=== PATIENT | male | born 1995 | race Caucasian/White ===

== ENCOUNTER 2025-05-14 16:08 | Inpatient (IN) | payer OTHER, SELFPAY ==
[2025-05-14] VITALS (8 sets, daily range): BP systolic 126–158; BP diastolic 63–90; BMI 29.3; BMI 33.8
--- NOTE | 2025-05-14 13:53 | ED.GENMED ---
History of Present Illness
General
Chief Complaint: Abdominal Pain
Source: patient and family
Exam Limitations: none
Time Seen by Provider: 05/14/25 13:47
Nursing documentation reviewed up to this point in time: agreed with
History of Present Illness
History of Present Illness:
Patient presents to ED secondary to worsening left-sided abdominal pain, noted around 10 AM, when he first woke up. Abdominal pain described as sharp, nonradiating, without any alleviating or exacerbating factors. Denies back pain. Denies nausea
or vomiting. Denies diarrhea. Denies trauma. Patient denies any symptoms when he first went to sleep last night. Per family the, patient was complaining of left-sided abdominal pain couple days ago which had resolved spontaneously. There is
family history of kidney stones. Patient does not smoke, but does drink alcohol socially, but at different times heavily.
Review of Systems
Review of Systems
Allergies reviewed?: Yes
All Other Systems: ROS reviewed and negative except as documented in HPI and ROS
Constitutional: Reports no symptoms
Respiratory: Reports no symptoms
Cardiac: Reports no symptoms
ABD/GI: Reports abdominal pain and nausea; Denies vomiting or diarrhea
: Reports no symptoms
Musculoskeletal: Reports no symptoms
Skin: Reports no symptoms
Neurological: Reports no symptoms
Phy Exam
Physical Exam
Physical Exam:
Physical Exam
General: moderate painful distress, not acutely ill. afebrile
Head: nc/at. eomi
Neck: supple. normal range of motion.
Heart: s1/s2 regular rate and rhythm
Lungs: no acute respiratory distress. clear bilaterally
Abdomen: normal bowel sounds. moderate epigastric/LUQ tenderness to palpation
Neuro: alert and oriented x 3. no focal neurological deficits
Skin: no rash
Psychiatric: well kept. interactive and cooperative
Extremities: no edema. no calf tenderness.
Course
Orders/Labs/Results
Orders:
Orders
05/14/25 13:56
Alcohol Urgent
Complete Blood Count/With Diff Urgent
Comprehensive Metabolic Panel Urgent
Lipase Urgent
Triglycerides Urgent
Comment: ADD ON
05/14/25 13:59
Urinalysis Reflex To Culture Urgent
Date Specimen was Collected: 05/14/25
Time Specimen was Collected: 13:57
Urine Microscopic Reflex Cult Urgent
05/14/25 14:04
HYDROmorphone [Dilaudid] 0.5 mg IV NOW STA
Ketorolac [Toradol] 15 mg IV NOW STA
05/14/25 14:05
Pantoprazole [Protonix IV] 40 mg IV NOW STA
05/14/25 14:06
0.9% Sodium Chloride [Nss (Preservative Free)] 10 ml IV NOW STA
05/14/25 14:15
0.9% Sodium Chloride 1000 ml [Nss] 1,000 ml IV BOLUS
05/14/25 15:25
Add On- LAB Urgent
Tests Added?: alcohol level
US Abdomen Complete/Upper Urgent
Comment:
Reason For Exam: abd pain
05/14/25 15:30
Lactated Ringers [Lr] 500 ml IV 125 mls/hr
05/14/25 15:46
Admit/Transfer Patient As Directed
Co-Sign Provider:
Level of Care: Inpatient admission
Assign to:: Medical/Surgical
Physician / Group: triny
Diagnosis: acute pancreatitis
Reason for Hospitalization: acute pancreatitis
Expected length of stay greater than two midnights?: Yes
ELOS- Estimated Length of Stay in days: 3
I certify the patient meets the requirements for IP care: Yes
05/14/25 15:47
Code Status As Directed
Resuscitation Status: Full Code
PRN Pain Medication Management As Directed
May give lesser potent ordered pain med per pt: Yes
preference::
Protocol:: Medication orders for pain may be administered in a
manner that supports deferring to patient preference
when the pt is:
- Requesting an ordered lesser potent pain medication.
Least to most potent pain medications are defined
as: acetaminophen < NSAID < tramadol < opioids
(morphine, oxycodone, hydromorphone).
- Requesting a lesser dose of the same medication IF
ORDERED.
- Requesting a less intrusive route of administration
if both routes are prescribed by the provider (PO <
IV).
05/14/25 16:00
Lactated Ringers [Lr] 1,000 ml IV 150 mls/hr
05/14/25 17:47
HYDROmorphone [Dilaudid] 1 mg IV Q4HPRN PRN
05/14/25 20:47
0.9% Sodium Chloride [Nss (Preservative Free)] See Protocol IV PRN PRN
Enoxaparin Sodium [Lovenox] 40 mg SC QPM
FOLic ACID [Folvite] 1 mg 0.9% Sodium Chloride 50 ml [Nss] 50 ml IV DAILYPRN
Lorazepam [Ativan] 1 mg PO Q2HPRN PRN
Lorazepam [Ativan] 2 mg IV Q1HPRN PRN
Thiamine Injection 200 mg IV Q12
05/14/25 20:47
Case Management Consult Once
Case Management Consult: Other
Comment: Substance abuse counseling
DIETARY IP CONSULT Routine
Reason for Consult: Nutrition support, possible refeeding guidelines
PTT Urgent
Prothrombin Time Urgent
Activity As Directed
Activity Level: As Tolerated
MSAS SCORE As Directed
MSAS Score 0-4: Repeat MSAS every 2 hours until 0-4 for three consecutive assessments, then every 4 hours x 48
hours.
MSAS Score 5-7: For MILD withdrawl symptoms. Repeat MSAS and RASS every 2 hours
MSAS Score 8-11: For MODERATE withdrawal symptoms. Repeat MSAS and RASS every 1 hour. Consider ICU or IMU
level of care.
MSAS Score > 11: For SEVERE withdrawal symptoms. Repeat MSAS and RASS every 1 hour. Notify provider, consider
ICU level of care.
MSAS Additional Instructions: If no improvement or no decrease in score from severe to moderate within 12
hours, consult psychiatry
MSAS Notify Provider: Notify provider if patient requires more than 10 mg of Lorazepam in eight hour period.
Vital Signs As Directed
Frequency: Per unit guidelines
DX Deep Vein Thrombosis Video Routine
05/14/25 21:07
Lorazepam [Ativan] 1 mg PO Q1HPRN PRN
05/15/25 08:00
FOLic ACID [Folvite] 1 mg PO DAILY
Pantoprazole [Protonix IV] 40 mg IV DAILY
05/17/25 20:00
Thiamine HCl [Vitamin B1] 100 mg PO BID
Abnormal Lab Results
05/14/25 05/14/25
13:56 13:59
WBC 11.6 H 10^3/uL
(4.8-10.8)
MCHC 32.9 L g/dL
(33.0-37.0)
MPV 11.4 H fL
(7.4-10.4)
Absolute Neuts (auto) 7.7 H 10^3/uL
(1.4-6.5)
Glucose 167 H mg/dl
(70-99)
ALT 89 H U/L
(0-50)
Total Protein 8.3 H g/dl
(6.3-8.2)
Triglycerides 388 H mg/dl
(10-149)
Lipase > 4000 H* U/L
(23-300)
Urine Albumin (Reflex) 1+ A
(Neg - Trace)
05/14/25 13:56
05/14/25 13:56
Vital Signs
Initial and Last Documented VS:
Initial Vital Signs
Temp Pulse Resp BP Pulse Ox
98.2 F 88 16 150/90 100
05/14/25 13:23 05/14/25 13:23 05/14/25 13:23 05/14/25 13:23 05/14/25 13:23
Last Documented Vital Signs
Temp Pulse Resp BP Pulse Ox
99.0 F 70 18 134/41 95
05/15/25 15:38 05/15/25 15:38 05/15/25 15:38 05/15/25 15:38 05/15/25 15:38
MDM/Problems Addressed
MDM/Problems Addressed:
History and exam concerning for an acute pancreatitis. Abdominal ultrasound ordered. Patient denies drinking alcohol last night. Patient had chicken soup for dinner. Patient will be admitted for further evaluation and treatment.
Lactated Ringer IVF started.
*Pulse Oximetry
SaO2: 100
Oxygen Mode of Delivery: Room air
Patient hypoxic: no
*Critical Care Note
Total Time (30-74mins, 75-104mins- exclusive of procedures): Not Applicable
ED Attending Note
-
Portions of this chart may have been created with voice recognition software.� Occasional wrong word or��sound alike� substitutions may have occurred due to the inherent limitations of voice recognition software.
Discharge Plan
Departure
Patient Disposition: Admit
Date of Disposition: 05/14/25
Time of Disposition: 15:31
Admit to: Med/Surg
Presentation/result/management discussed w/ accepting MD/DO: Hospitalist
Discharge Problem:
Pancreatitis
Interventions
Interventions:
*Risk Screen - Suicide Last Done: 05/14/25 13:23
*General Assessment Last Done: 05/14/25 13:53
*Neglect/Abuse Screening Last Done: 05/14/25 13:23
*ED- Fall Risk Assessment Last Done: 05/14/25 13:53
*ED COVID-19 Vaccine History Last Done: 05/14/25 13:53
*Nursing Disposition Last Done: 05/14/25 20:47
LF-Ylprck-Kdnnwtwlhc Assessment Last Done: 05/14/25 13:53
Discharge Date and Time
Discharge Date/Time: 05/14/25 20:47
[2025-05-14] MEDS: NSS 1000 IV (14:06)
[2025-05-14] MEDS: DILAUDID 0.5 MG IV ×3 (14:07→21:16)
[2025-05-14] MEDS: TORADOL 15 MG IV (14:07)
[2025-05-14] MEDS: NSS (PRESERVATIVE FREE) 10 ML IV (14:10)
[2025-05-14] MEDS: PROTONIX IV 40 MG IV (14:10)
[2025-05-14 14:11] LABS: Urine Character Clear (Clear)
[2025-05-14 14:11] LABS: Hematocrit 42.2 % (39.0-52.0); Hemoglobin 13.9 g/dL (13.0-18.0); Mean Corp Hgb Conc. 32.9 g/dL (33.0-37.0); Mean Corpuscular Volume 87.7 fL (80.0-94.0); Nucleated Red Blood Cells % 0 % (-); Platelet Count 233 10^3/uL (130-400); Red Cell Dist. Width 12.9 % (11.5-14.5)
[2025-05-14 14:34] LABS: ALT (SGPT) 89 U/L (0-50); AST (SGOT) 48 U/L (17-59); Albumin 5.0 g/dl (3.5-5.0); Alkaline Phosphatase 73 U/L (38-126); Blood Urea Nitrogen 14 mg/dl (9-20); Calcium 10.0 mg/dl (8.4-10.2); Carbon Dioxide 24 mmol/L (22-30); Chloride 105 mmol/L (98-107); Estimated Creatinine Clearance 118 ml/min; Glucose 167 mg/dl (70-99); Potassium 4.3 mmol/L (3.5-5.1); Sodium 141 mmol/L (135-145); Total Protein 8.3 g/dl (6.3-8.2); eGFR > 60.00
[2025-05-14 14:43] LABS: Urine Squamous Cell 0-2 /LPF (Few)
[2025-05-14 14:44] LABS: Urine Red Blood Cell 0-2 /HPF (0-2); Urine White Cell 0-2 /HPF (0-5)
[2025-05-14 15:02] LABS: Lipase > 4000 U/L (23-300)
--- NOTE | 2025-05-14 15:32 | HPS.HSE ---
Family Physician
-
Family Physician: * NONE
Chief Complaint
-
left sided abdominal pain
History of Present Illness
29 year old with no significant PMH presented to us with left-sided abdominal pain, noted around 10 AM, when he first woke up. he noticed some left sided back pain yesterday. Abdominal pain described as sharp, nonradiating, without any
alleviating or exacerbating factors. Denies nausea or vomiting. Denies diarrhea. Denies trauma. denied fever, chills, SANDS,dizzy or syncope.denied chest pain, sob.denied dysuria or hematuria. he drinks once a week and drinks 8-[address] with pancreatitis. admitting for further management.
Medical History
Past Medical History
Past Medical History: Reports None
Past Surgical History: Reports None
Social History
Tobacco: Non-smoker
Alcohol: Occasional
Drug: None
Living: With Family
Family History
Family History: Not pertinent
Allergies / Home Medications
Allergies reflects when Allergies were last updated in [facility].
Home Medications with original date entered in [facility]
Allergy/Medication List:
Allergies
Allergy/AdvReac Type Severity Reaction Status Date / Time
No Known Allergies Allergy Verified 05/14/25 13:55
Home Medications
No Meds [No Current Medications] 05/14/25
Review of Systems
-
Constitutional: Reports No Symptoms
EENT: Reports No Symptoms
Respiratory: Reports No Symptoms
Cardiac: Reports No Symptoms
Abdomen/GI: Reports No Symptoms and Abdominal Pain
: Reports No Symptoms
Musculoskeletal: Reports No Symptoms
Skin: Reports No Symptoms
Neurological: Reports No Symptoms
Endocrine: Reports No Symptoms
Hematologic/Lymphatic: Reports No Symptoms
Psych: Reports No Symptoms
Physical Exam
Vital Signs
Vital Signs
Temp Pulse Resp BP Pulse Ox
98.2 F 88 16 142/67 100
05/14/25 13:23 05/14/25 13:23 05/14/25 13:23 05/14/25 15:00 05/14/25 15:15
Physical Exam
General: Well Developed, Well Nourished and No Apparent Distress
HEENT: NormoCephalic, Moist mucous membranes and Atraumatic
Respiratory: Clear
Cardiac: S1/S2 and Regular Rhythm; No Murmur or Rub
GI: Soft, Non Distended, Normal Bowel Sounds and Tender; No Organomegaly
Rectal: Deferred by Provider
Musculoskeletal: No Clubbing, No Cyanosis and No Edema
Skin: No Rash
Neuro: AO x 3 and Nonfocal/grossly intact
Psych: Calm
Laboratory Results
-
05/14/25 13:56
05/14/25 13:56
Laboratory Results
Total Bilirubin 0.8 mg/dl (0.2-1.3) 05/14/25 13:56
AST 48 U/L (17-59) 05/14/25 13:56
ALT 89 U/L (0-50) H 05/14/25 13:56
Alkaline Phosphatase 73 U/L (38-126) 05/14/25 13:56
Lipase > 4000 U/L (23-300) H* 05/14/25 13:56
Data Reviewed
-
CT Scan: Report Reviewed by me
Lab Data: Labs Reviewed by me
Impression/Plan
-
# Acute pancreatitis
-WBCs 11.6 ALT 89, lipase greater than 4000
-Ultrasound of abdomen pending
-Fluids continued
-keep patient NPO
Dilaudid as needed for pain
#alcohol dependence
-no withdrawal noted
-drinks 8-10 beers once a week, last drink was on Wednesday
-monitor MSAS score and protocol.
#DVT prophylaxis
-Lovenox
#CODE status
-full code
--- NOTE | 2025-05-14 15:47 | W.PN.UPDATE ---
Update Note
Progress Note Update
This note serves as an addendum to the H&P by Amy Fortune on May 14, 2025.
History of Presenting Illness
29 year old male with no significant past medical history presented with progressively worse left-sided abdominal pain, noted around 10 AM on May 14, 2025, when he first woke up. He had noticed some left sided back pain the day before. He
described his abdominal pain as sharp, nonradiating, and without any alleviating or exacerbating factors. He denied nausea or vomiting, diarrhea, trauma, fever, chills, headache, dizziness, syncope, chest pain, shortness of breath, dysuria or
hematuria. He drinks once a week and drinks 8-10 beers when he does.
Vital Signs
AFVSS
Physical Exam
General: Not in acute distress
HEENT: Normocephalic, Moist mucous membranes and Atraumatic
Respiratory: Clear to Auscultation Bilaterally
Cardiac: S1/S2 and Regular Rhythm
GI: Soft, Non Distended, Normal Bowel Sounds and Tender
Musculoskeletal: No Cyanosis and No Edema
Skin: Warm. Dry.
Neuro: AAO x 3 and Nonfocal/grossly intact
Psych: Calm
Assessment/Plan
#Mild Acute pancreatitis
-WBCs 11.6 ALT 89, lipase greater than 4000
-Ultrasound of abdomen
-Check serum triglyceride levels
-Lactated Ringers IV fluids at 200 cc/hr
-NPO for now -- will transition to Low Residue, Low Fat and Soft diet when patient is hungry and does not have nausea, vomiting, or paralytic ileus.
-NSAIDs or Dilaudid as needed for pain
#Alcohol Dependence
-no withdrawal noted
-drinks 8-10 beers once a week, last drink was on Wednesday05/12/25
-MSAS protocol
DVT Prophylaxis: SCDs and Lovenox
Code Status: Full Code
[2025-05-14] MEDS: LR 1000 IV ×2 (15:52→23:12)
--- NOTE | 2025-05-14 21:00 | PTCARENOTE ---
Patient arrived to unit via stretcher accompanied by ED PCT. Patient ambulated self into room/bed without difficulty. Patient primarily greek speaking, mill operator used for assessment and admission. MSAS score of 3. Patient medicated for 8/10 pain
in L abd, see MAR. Patient vomited clear contents and admits to feeling better after. Oriented to room/facility, instructed use of call garcia and within reach, safe environment maintained, VSS, care ongoing.
[2025-05-14 21:02] LABS: Triglycerides 388 mg/dl (10-149)
[2025-05-14] MEDS: THIAMINE INJECTION 200 MG IV (21:20)
[2025-05-14] MEDS: LR IV (21:20)
[2025-05-14] MEDS: LOVENOX 40 MG SC (21:20)
[2025-05-15] MEDS: DILAUDID 0.5 MG IV ×3 (01:25→10:21)
[2025-05-15] MEDS: ZOFRAN 4 MG IV ×3 (01:44→20:11)
[2025-05-15 03:37] VITALS: BP 131/69
[2025-05-15] MEDS: LR 1000 IV ×3 (06:02→19:33)
[2025-05-15 07:30] VITALS: BP 140/71
[2025-05-15 07:56] LABS: Hematocrit 37.2 % (39.0-52.0); Hemoglobin 12.2 g/dL (13.0-18.0); INR 1.08; Mean Corp Hgb Conc. 32.8 g/dL (33.0-37.0); Mean Corpuscular Volume 87.5 fL (80.0-94.0); PT 14.3 Sec (11.4-14.6); Platelet Count 189 10^3/uL (130-400); Red Cell Dist. Width 13.3 % (11.5-14.5)
[2025-05-15 07:58] LABS: APTT 26.2 Sec (23.4-35.0)
[2025-05-15 08:42] LABS: ALT (SGPT) 57 U/L (0-50); AST (SGOT) 34 U/L (17-59); Albumin 3.9 g/dl (3.5-5.0); Alkaline Phosphatase 42 U/L (38-126); Blood Urea Nitrogen 17 mg/dl (9-20); Calcium 9.1 mg/dl (8.4-10.2); Carbon Dioxide 26 mmol/L (22-30); Chloride 103 mmol/L (98-107); Estimated Creatinine Clearance > 125 ml/min; Glucose 116 mg/dl (70-99); Magnesium 1.4 mg/dl (1.6-2.3); Potassium 3.9 mmol/L (3.5-5.1); Sodium 138 mmol/L (135-145); Total Protein 6.5 g/dl (6.3-8.2); eGFR > 60.00
[2025-05-15] MEDS: THIAMINE INJECTION 200 MG IV ×2 (08:55→19:33)
[2025-05-15] MEDS: PROTONIX IV 40 MG IV (08:56)
[2025-05-15] MEDS: NSS (PRESERVATIVE FREE) 10 ML IV (08:56)
[2025-05-15] MEDS: FOLVITE 1 MG PO (08:58)
--- NOTE | 2025-05-15 10:22 | CON.GI ---
Addendum entered and electronically signed by Pauline Bansal MD 05/15/25 13:08:
I saw and examined the patient.
The PATIENT TRANSPORT OFFICER or PA's note was reviewed and I agree with the note.
Comment: 29-year-old Bulgarian-speaking male (history obtained from patient through his brother as park maintainer on the telephone) presenting to the emergency room with complaints of mid abdominal pain radiating to the back, initially started Wednesday but
progressively got worse yesterday. He does report intermittent episodes of epigastric pain after meals in the last 1 year with some loose stool and bloating. Pain his presenting with now is different from the epigastric pain he had before. In the
ER, he was noted to have lipase more than 4000 with ALT about 2 times upper limit of normal. Abdominal ultrasound showing biliary sludge without acute cholecystitis, common duct mildly dilated 7 mm, fatty liver noted. No leukocytosis.
Non-smoker, would drink up to 10 beers a week. Last alcohol use was 2 days prior to admission. No other GI complaints or family history of known GI problems.
- Acute pancreatitis, rule out gallstone related versus EtOH
Currently on Ringer lactate at 150 cc an hour
N.p.o., once abdominal pain is getting better, can start with clear liquid diet and slowly advance to low-fat diet as tolerated.
Will check MRI/MRCP to evaluate for any evidence of choledocholithiasis. If there is any evidence of gallstones, recommend surgical consult.(By history, he could be having biliary colic as well.)
Agree with checking triglyceride level.
Reinforced complete abstinence from alcohol.
Will follow
Original Note:
Consultation
-
Date/Time Consultation Requested: 05/14/252046
Date/Time Consultation Performed: 05/15/25 1000
Requesting Provider: KUNAL Mckinney
Performing Provider: Dr. Bansal/KUNAL Avina
Reason for Consultation: pancreatitis
Medical History
Chief Complaint / HPI
Chief Complaint: abd pain
History of Present Illness:
29-year-old male (Bulgarian-speaking) who we interviewed with the assistance of his brother (Barbara) per patient preference with no significant past medical history, no past surgical history who presents to the emergency room with 3-day history of
abdominal pain. Asked to evaluate for pancreatitis. The patient does not take any medications, prescription, [id number] or vitamins. He does not smoke either tobacco, vape or marijuana. He has essentially 8-10 beers once a week and only,
(last alcoholic beverage was Wednesday). He has had intermittent abdominal discomfort over the past year that has been associated with 'greasy foods'. This pain however has been different. On Wednesday he started having some mid abdominal discomfort
that started to radiate to the right side of his abdomen. This initially was mild. Yesterday a.m. around 12 PM he had a '10 out of 10 pain'. He has never had pain like this in the past. It radiated through to his back. At that point they came
to the emergency room for further evaluation. He did have associated nausea and vomiting that was 'white'. He usually has 3 bowel movements a day that starts out 'normal and then has loose stool' he denies any melena or hematochezia. He denies
any fevers, chills, acholic stools, bilirubinuria, dysphagia or odynophagia. He has had some early satiety as well as some bloating. He denies any chest pain, shortness of breath, dizziness or lightheadedness. At the present time he rates his
pain as a '4 or 5'. Past family history includes mother with diabetes and a sister with 'stomach problems'. Denies any family history of pancreatic issues, liver disease or GI malignancy. 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 At the present time he is on
lactated Ringer's at 150 cc an hour. He was given 2 L of IV fluid prior to this. WBC 9.4 down from 11.6, hemoglobin 12.2 down from 13.9 showing appropriate hemodilution, hematocrit 37.2, platelets 189, MCV 87.5, MCH 28.7, PT 14.3 INR 1.08, sodium
138, potassium 3.9, chloride 103, CO2 26, BUN 17 creatinine 0.7, glucose 116, magnesium 1.4, total bilirubin 1.2, AST 34, ALT 57 (down from 89), alk phos 42, triglycerides 388, lipase greater than 4000, alcohol negative. Ultrasound the abdomen
showing biliary sludge. No biliary ductal dilatation however CBD measures 7 mm.
Past Medical History
Past Medical History: None
Past Surgical History: None
Social History
Tobacco: Non-Smoker
Alcohol: Binge Drinker (Drinks 8-10 beers on weekend)
Drug: None
Personal: Single
Employment: Employed
Family History
Family History: Other (No family history of GI malignancy, sister with 'stomach problems'.)
Allergies / Home Medications
Allergy/AdvReac Type Severity Reaction Status Date / Time
No Known Allergies Allergy Verified 05/14/25 13:55
�Medication �Instructions �Recorded
No Meds [No Current Medications] 05/14/25
Review of Systems
-
All other systems: A 12 pt ROS was Negative except as stated above in HPI
Vital Signs
Temp Pulse Resp BP Pulse Ox
98.7 F 85 18 140/71 95
05/15/25 07:30 05/15/25 07:30 05/15/25 07:30 05/15/25 07:30 05/15/25 07:30
Physical Exam
Exam
General: No Apparent Distress
HEENT: Anicteric and Moist Mucous Membranes
Respiratory: Clear (Decreased right base)
Cardiac: Regular Rhythm
GI: Soft, Non Distended, Normal Bowel Sounds and Tender (Periumbilical/left upper quadrant)
Musculoskeletal: No Edema
Skin: Warm and Dry
Neuro: AO x 3
Psych: Calm
Results
WBC 9.4 10^3/uL (4.8-10.8) 05/15/25 06:51
Hgb 12.2 g/dL (13.0-18.0) L 05/15/25 06:51
Hct 37.2 % (39.0-52.0) L 05/15/25 06:51
MCV 87.5 fL (80.0-94.0) 05/15/25 06:51
Plt Count 189 10^3/uL (130-400) 05/15/25 06:51
Absolute Neuts (auto) 7.7 10^3/uL (1.4-6.5) H 05/14/25 13:56
PT 14.3 Sec (11.4-14.6) 05/15/25 06:51
INR 1.08 05/15/25 06:51
APTT 26.2 Sec (23.4-35.0) 05/15/25 06:51
Sodium 138 mmol/L (135-145) 05/15/25 06:51
Potassium 3.9 mmol/L (3.5-5.1) 05/15/25 06:51
Chloride 103 mmol/L (98-107) 05/15/25 06:51
Carbon Dioxide 26 mmol/L (22-30) 05/15/25 06:51
BUN 17 mg/dl (9-20) 05/15/25 06:51
Creatinine 0.7 mg/dL (0.7-1.3) 05/15/25 06:51
Calcium 9.1 mg/dl (8.4-10.2) 05/15/25 06:51
Total Bilirubin 1.2 mg/dl (0.2-1.3) 05/15/25 06:51
AST 34 U/L (17-59) 05/15/25 06:51
ALT 57 U/L (0-50) H 05/15/25 06:51
Alkaline Phosphatase 42 U/L (38-126) 05/15/25 06:51
Lipase > 4000 U/L (23-300) H* 05/14/25 13:56
Diagnostic Image Results:
Ultrasound abdomen:
IMPRESSION:
Biliary sludge without sonographic findings suggestive of acute cholecystitis.
The common bile duct is mildly dilated measuring 7 mm. Recommend correlation with lab value and possible MRCP for evaluation of biliary obstruction.
Mild hepatomegaly with hepatic steatosis.
Prior GI Procedures:
EGD: Never
Colonoscopy: Never
Assessment / Plan
-
29-year-old male (Bulgarian-speaking) who we interviewed with the assistance of his brother (Barbara) per patient preference with no significant past medical history, no past surgical history who presents to the emergency room with 3-day history of
abdominal pain. Asked to evaluate for pancreatitis. The patient does have intermittent abdominal discomfort associated with 'greasy food'. Ultrasound of the abdomen with common bile duct mildly dilated measuring 7 mm as well as biliary sludge
seen. Lipase greater than 4000. Also with history of once weekly binge like drinking 8-10 beers at a time. Triglycerides elevated at 388.
Impression:
Pancreatitis
Plan:
- Continue lactated Ringer's at 150 cc an hour
- N.p.o. until after MRI of the abdomen with and without contrast with MRCP, if negative for common bile duct stone will likely trial clear liquid.
- CBC, CMP, total bilirubin in a.m.
- Incentive spirometer
- Analgesia
- Recommend avoidance of alcohol
-Further recommendations to be forthcoming
-
-
Thank you for consultation and allowing me to participate in the patient's care. Please call the vendor management consultant GI physician during the after hours with any questions or concerns.
[2025-05-15 11:15] VITALS: BP 136/73
--- NOTE | 2025-05-15 15:05 | CM ---
Met with patient to obtain information for assessment using property developer. Patient stated that he lives with his two brothers in a multi-story house with 5 steps to enter. He described himself as independent with all of his ADLs, personal care,
dressing and bathing. 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 He drives and can get himself to all of his appointments and does his own shopping. He has no DME. He has never had VN or been to a SNF.
Patient was offered substance abuse counseling resources from [facility] however he declined. Patient is self pay. Will confirm that he started the [facility] process.
Patient has a prescription plan and uses, [facility] [address] in [place].
Patient's PCP is not listed in chart.
Plan: Case management will continue to follow and assist with discharge planning. Home when stable medically.
[2025-05-15 15:38] VITALS: BP 134/41
[2025-05-15] MEDS: LOVENOX 40 MG SC (17:17)
--- NOTE | 2025-05-15 17:22 | W.PN.HOSP.TC ---
Today's Communication/Plan
-
See plan
Assessment / Plan
Assessment / Plan
Physical Exam
General: Not in acute distress
HEENT: Normocephalic, Moist mucous membranes and Atraumatic
Respiratory: Clear to Auscultation Bilaterally
Cardiac: S1/S2 and Regular Rhythm
GI: Soft, Non Distended, Normal Bowel Sounds and Tender
Musculoskeletal: No Cyanosis and No Edema
Skin: Warm. Dry.
Neuro: AAO x 3 and Nonfocal/grossly intact
Psych: Calm
Assessment/Plan
Mild Acute pancreatitis
-WBCs 11.6 ALT 89, lipase greater than 4000
-Ultrasound of abdomen abnormal --> check MRI/MRCP to evaluate for any evidence of choledocholithiasis
-Serum triglyceride 388
-Lactated Ringers IV fluids at 150 cc/hr
-NPO for now -- can transition to Low Residue, Low Fat and Soft diet when patient is hungry and does not have nausea, vomiting, or paralytic ileus.
-NSAIDs or Dilaudid as needed for pain
Alcohol Dependence
-no withdrawal noted
-drinks 8-10 beers once a week, last drink was on Wednesday05/12/25
-MSAS protocol
DVT Prophylaxis: SCDs and Lovenox
Code Status: Full Code
Anticipated Discharge: 24 - 48 hours
Subjective/Interval History
-
Date of Service: May 15, 2025
Patient was seen and examined. He reported still having abdominal pain.
Objective Data
-
Labs:
Laboratory Results
05/15/25
06:51
WBC 9.4
Hgb 12.2 L
Hct 37.2 L
Plt Count 189
PT 14.3
INR 1.08
APTT 26.2
Sodium 138
Potassium 3.9
Chloride 103
Carbon Dioxide 26
BUN 17
Creatinine 0.7
Glucose 116 H
Calcium 9.1
Total Bilirubin 1.2
AST 34
ALT 57 H
Alkaline Phosphatase 42
Vital Signs:
Vital Signs
Temp Pulse Resp BP Pulse Ox
99.0 F 70 18 134/41 95
05/15/25 15:38 05/15/25 15:38 05/15/25 15:38 05/15/25 15:38 05/15/25 15:38
[2025-05-15] MEDS: MAGNESIUM SULFATE 102 GRAMS IV (17:43)
[2025-05-15 19:14] VITALS: BP 138/82
[2025-05-15] MEDS: TYLENOL 650 MG PO (19:34)
[2025-05-15 23:20] VITALS: BP 126/70
[2025-05-16 03:22] VITALS: BP 142/85
[2025-05-16] MEDS: TYLENOL 650 MG PO ×2 (03:29→09:58)
[2025-05-16] MEDS: LR 1000 IV ×2 (03:29→09:59)
[2025-05-16 07:12] LABS: Hematocrit 34.5 % (39.0-52.0); Hemoglobin 11.7 g/dL (13.0-18.0); Mean Corp Hgb Conc. 33.9 g/dL (33.0-37.0); Mean Corpuscular Volume 86.0 fL (80.0-94.0); Nucleated Red Blood Cells % 0 % (-); Platelet Count 159 10^3/uL (130-400); Red Cell Dist. Width 13.2 % (11.5-14.5)
[2025-05-16 07:30] VITALS: BP 127/74
[2025-05-16 08:17] LABS: ALT (SGPT) 46 U/L (0-50); AST (SGOT) 28 U/L (17-59); Albumin 3.8 g/dl (3.5-5.0); Alkaline Phosphatase 43 U/L (38-126); Blood Urea Nitrogen 9 mg/dl (9-20); Calcium 8.9 mg/dl (8.4-10.2); Carbon Dioxide 29 mmol/L (22-30); Chloride 100 mmol/L (98-107); Estimated Creatinine Clearance > 125 ml/min; Glucose 110 mg/dl (70-99); Magnesium 1.9 mg/dl (1.6-2.3); Potassium 3.5 mmol/L (3.5-5.1); Sodium 136 mmol/L (135-145); Total Protein 6.3 g/dl (6.3-8.2); Triglycerides 160 mg/dl (10-149); eGFR > 60.00
[2025-05-16] MEDS: FOLVITE 1 MG PO (09:55)
[2025-05-16] MEDS: NSS (PRESERVATIVE FREE) 10 ML IV (09:55)
[2025-05-16] MEDS: THIAMINE INJECTION 200 MG IV (09:55)
[2025-05-16] MEDS: PROTONIX IV 40 MG IV (09:55)
--- NOTE | 2025-05-16 10:48 | W.PN.GI.CBS2 ---
Addendum entered and electronically signed by Pauline Bansal MD 05/16/25 17:03:
I saw and examined the patient.
The WELFARE DIRECTOR or PA's note was reviewed and I agree with the note.
Comment: Communicated with patient through e commerce merchant video call.
Patient denies any abdominal pain, nausea or vomiting. No fevers or chills. Reports having a bowel movement which is formed this morning. Tolerating low residue diet
LFTs including transaminases and alkaline phosphatase in normal range, elevated indirect bilirubin.
MRI with on hold as symptoms completely improved
Patient wants to go home and follow-up as outpatient
I did explain to patient through trial attorney that his postprandial abdominal pain could be related to biliary colic, I did give number for general surgery to follow-up with them for ongoing symptoms.
Complete abstinence from alcohol reinforced.
If symptoms recur, suggested coming back to the emergency room. Patient understands.
Original Note:
Today's Communication / Plan
-
As per plan
Assessment / Plan
-
29-year-old male (Occitan-speaking) who we interviewed with the assistance of his brother (Barbara) per patient preference with no significant past medical history, no past surgical history who presents to the emergency room with 3-day history of
abdominal pain. Asked to evaluate for pancreatitis. The patient does have intermittent abdominal discomfort associated with 'greasy food'. Ultrasound of the abdomen with common bile duct mildly dilated measuring 7 mm as well as biliary sludge
seen. Lipase greater than 4000. Also with history of once weekly binge like drinking 8-10 beers at a time. Triglycerides elevated at 388, now decreased to 160. No leukocytosis, LFTs currently total bilirubin 1.5, direct bilirubin 0.3, AST 28,
ALT 46, alk phos 43. Patient was hungry yesterday and started low-fat diet yesterday afternoon. Has been tolerating diet without any increase in pain. Has only required Tylenol in the past 24 hours. Has had a mild fever. COVID test pending.
Impression:
Pancreatitis
Plan:
- Can reduce IV fluids and discontinue as patient tolerating solid diet without any difficulty, and is pain-free.
- MRI has been discontinued as patient is tolerating solid diet.
- There is dilatation of the common bile duct with normal LFTs. Cannot exclude biliary sludge or passed stone although not seen on imaging. Patient has had biliary type complaints in the past.
- Recommend avoidance of alcohol.
- Patient does want a go home today.
- Recommend low-fat diet.
- Patient still with low-grade fever. Discussed with medicine attending. COVID pending.
- If with any continued symptoms worsening pain would need MRI of the abdomen with and without contrast and MRCP.
Subjective
Subjective
Date of Service: May 16, 2025
Patient seen and currently finished breakfast this morning. Also had a solid dinner last night. Patient states that he has no abdominal pain. He states pain resolved yesterday. At that point he was placed on a low-fat diet. He has had a mild
temperature since yesterday. Patient states that he wants to go home. He has only required Tylenol for discomfort in the past 24 hours. Continues on lactated Ringer's at 150 cc an hour. No leukocytosis. No antibiotics. Total bilirubin 1.5,
direct bilirubin 0.3, AST 28, ALT 46, alk phos 43, triglycerides 160. MRI/MRCP not performed.
Objective
Data Reviewed
Laboratory Data:
Laboratory Results
05/16/25 06:54
05/16/25 06:54
Laboratory Results
PT 14.3 Sec (11.4-14.6) 05/15/25 06:51
INR 1.08 05/15/25 06:51
APTT 26.2 Sec (23.4-35.0) 05/15/25 06:51
Phosphorus Cancelled 05/14/25 20:47
Magnesium 1.9 mg/dl (1.6-2.3) 05/16/25 06:54
Total Bilirubin 1.5 mg/dl (0.2-1.3) H 05/16/25 06:54
AST 28 U/L (17-59) 05/16/25 06:54
ALT 46 U/L (0-50) 05/16/25 06:54
Alkaline Phosphatase 43 U/L (38-126) 05/16/25 06:54
Lipase > 4000 U/L (23-300) H* 05/14/25 13:56
Vital Signs and I&O:
Vital Signs
Temp Pulse Resp BP Pulse Ox
100.9 F H 89 18 127/74 97
05/16/25 07:30 05/16/25 07:30 05/16/25 07:30 05/16/25 07:30 05/16/25 07:30
I&O
05/15/25 05/16/25 05/17/25
06:59 06:59 06:59
Intake Total 1889
Balance 1889
Physical Exam
Physical Exam
HEENT: Anicteric
Cardiology: Normal Sinus Rhythm
Pulmonary: Clear
GI: Soft, Non Distended, Non Tender and Normal Bowel Sounds
Extremities: No Edema
Neuro: Non Focal
[2025-05-16 11:01] LABS: COVID-19 Antigen Negative (Negative)
[2025-05-16 11:14] VITALS: BP 148/69
--- NOTE | 2025-05-16 13:11 | W.PN.HOSP.TC ---
Today's Communication/Plan
-
d.c home
Assessment / Plan
Assessment / Plan
Mild Acute pancreatitis
-Presumed alcohol use related
-WBCs 11.6 ALT 89, lipase greater than 4000
-Ultrasound of abdomen. Some biliary sludge.
-MRI MRCP deferred as patient clinically feeling better.
-Serum triglyceride 388
-Lactated Ringers IV fluids at 150 cc/hr
-Tolerating diet
Alcohol Dependence
-no withdrawal noted
-drinks 8-10 beers once a week, last drink was on Wednesday05/12/25
-[facility]AS protocol
Fever episode
-UA/COVID neg
-suspected from pancreatitis.
DVT Prophylaxis: SCDs and Lovenox
Code Status: Full Code
More than 30 minutes spent in discharge including
Final examination of the patient
Summarizing hospital stay
Instructions for continuing care to all relevant caregivers
Preparation of discharge records, prescriptions, and referral forms
Total time spent (in minutes): 39 mins
Anticipated Discharge: Today
Subjective/Interval History
-
Date of Service: May 16, 2025
Denies abdominal pain/nausea/vomiting
Have mild fever of 100.9 Fahrenheit
No other issues overnight
Objective Data
-
Labs:
Laboratory Results
05/16/25
06:54
WBC 9.6
Hgb 11.7 L
Hct 34.5 L
Plt Count 159
Sodium 136
Potassium 3.5
Chloride 100
Carbon Dioxide 29
BUN 9
Creatinine 0.8
Glucose 110 H
Calcium 8.9
Total Bilirubin 1.5 H
AST 28
ALT 46
Alkaline Phosphatase 43
Vital Signs:
Vital Signs
Temp Pulse Resp BP Pulse Ox
98.1 F 93 18 148/69 97
05/16/25 11:14 05/16/25 11:14 05/16/25 11:14 05/16/25 11:14 05/16/25 11:14
I&O
05/15/25 05/16/25 05/17/25
06:59 06:59 06:59
Intake Total 1889
Balance 1889
Review of Systems
-
Respiratory: Reports No Symptoms
Cardiac: Reports No Symptoms
Abdomen/GI: Reports No Symptoms
Physical Exam
-
General: No Apparent Distress and Comfortable
HEENT: Negative Oxygen
Respiratory: Clear to Auscultation
Cardiac: Regular Rhythm and S1/S2; Negative Murmur or Rub
GI: Nontender
Musculoskeletal: No Edema
Neuro: Awake, Alert, Oriented, No Motor Deficits and Nonfocal/Grossly Intact
Psych: Calm
--- NOTE | 2025-05-16 18:13 | W.DCSUMMARY ---
Discharge Summary
Discharge Data
Date of Admission: 05/14/25
Date of Discharge: 05/16/25
-
Pending Results: No
Hospital Course
Disposition: Home
Primary Care Physician : unknown
Principal Discharge Diagnosis:
- Acute pancreatitis, mild, presumed alcohol-related
- Fever, suspected secondary to pancreatitis
Chronic Discharge Diagnosis:
- Alcohol dependence
Hospital Course:
A 29-year-old male with no significant past medical history presented with left-sided abdominal pain and back pain starting the morning of admission. The pain was sharp, non-radiating, without alleviating or exacerbating factors. He denied nausea,
vomiting, diarrhea, fever, chills, dysuria, or hematuria. Social history notable for consuming 8-10 beers weekly, with the last drink on Monday, May 12, 2025. Initial evaluation revealed elevated lipase (>4000 U/L), ALT (89 U/L), and WBC (11.6),
consistent with acute pancreatitis, likely secondary to alcohol use. CT scan confirmed pancreatitis, and an abdominal ultrasound showed some biliary sludge; MRI/MRCP was deferred as the patient improved clinically. Serum triglycerides were elevated
at 388 mg/dL.
The patient was managed with IV Lactated Ringer�s at 150 cc/hr, kept NPO initially, and given Dilaudid as needed for pain. He experienced a fever episode, suspected to be related to pancreatitis, with negative urinalysis and COVID testing. The
patient�s condition improved, tolerating a diet by the end of the hospital stay, with resolution of symptoms.
Important Imaging Findings:
- CT scan: Confirmed acute pancreatitis
- Ultrasound of abdomen: Some biliary sludge noted
Procedure Findings:
- No invasive procedures performed
Discharge Plan
-
Patient Disposition: Home (Routine Discharge)
Discharge Diagnosis/Procedures: Acute pancreatitis
Condition: Fair
Diet: Low Fat
Additional Diets: No alcohol use
Activity: As tolerated
Driving Restrictions: As prior to admission
Bathing Restrictions: OK to Shower
Referrals:
NONE,* [Family Provider, Internal Medicine]
Prescriptions:
New
acetaminophen 325 mg Tablet
650 mg PO Q6HPRN PRN (Reason: mild pain/ fever>100.5F) Qty: 14 0RF
Discharge Orders:
Discharge Patient (As Directed); Ordered 05/16/25
Ordered By: Ney Kay
Discharge Date and Time
Discharge Date/Time: 05/16/25 13:14
Print Language: SLOVENIAN
== END 2025-05-16 13:14 | disposition home or self-care (01) | DRG 440 ==
LOC: 4 EAST ACU 16:08
PROVIDERS: Registered Nurse; ADMITTING PHYSICIAN Hospitalist; ATTENDING PHYSICIAN Hospitalist; CONSULT PHYSICIAN Internal Medicine Gastroenterology; EMERGENCY PHYSICIAN Emergency Medicine
DX: K85.20 Alcohol induced acute pancreatitis without necrosis or infection (principal); F10.20 Alcohol dependence, uncomplicated; E78.1 Pure hyperglyceridemia; K76.0 Fatty (change of) liver, not elsewhere classified; Z11.52 Encounter for screening for COVID-19
CPT/HCPCS: 76700; 80053; 81003; 81015; 82077; 82248; 83690; 83735; 84478; 85025; 85027; 85610; 85730; 87811; 93005; 96361; 96374; 96375; 99285